=== PATIENT | female | born 1975 | race Caucasian/White ===

== ENCOUNTER → 2023-07-23 | Outpatient (CLI) | payer SELFPAY ==
[~2023-07-23] MED LIST: IBUP800 PO; OXYACE5T PO
[2023-07-23 10:59] LABS: BASOPHILS ABSOLUTE AUTO 0.03 K/mm3 (0.00-0.23); BASOPHILS PERCENT AUTO 0 % (0-2); EOSINOPHILS ABSOLUTE AUTO 0.19 K/mm3 (0.00-0.68); EOSINOPHILS PERCENT AUTO 3 % (0-6); Hematocrit 38.7 % (33.0-51.0); Hemoglobin 12.8 g/dL (11.5-16.0); IMMATURE GRAN ABSOLUTE AUTO 0.04 K/mm3 (0.00-0.10); IMMATURE GRAN PERCENT AUTO 1 % (0-1); LYMPHOCYTES PERCENT AUTO 34 % (21-46); MONOCYTES ABSOLUTE AUTO 0.51 K/mm3 (0.16-1.47); MONOCYTES PERCENT AUTO 7 % (4-13); Mean Corpuscular HGB 30.8 pg (26.0-34.0); Mean Corpuscular HGB Conc 33.1 g/dL (31.5-36.5); Mean Corpuscular Volume 93 fL (80-100); Mean Platelet Volume 10.6 fL (9.1-12.4); NEUTROPHILS ABSOLUTE AUTO 3.82 K/mm3 (1.96-9.15); NEUTROPHILS PERCENT AUTO 55 % (41-73); Platelet Count 255 K/mm3 (150-400); RDW Coefficient Variation 12.8 % (11.7-14.2); RDW Standard Deviation 43.5 fL (35.1-46.3); Red Blood Cell Count 4.16 M/mm3 (3.80-5.20); White Blood Cell Count 6.99 K/mm3 (4.00-11.30)
[2023-07-23 11:20] LABS: Thyroid Stimulating Hormone 0.811 uIU/mL (0.360-4.800)
== END ==
LOC: LAB 10:53 → LAB SHORT 10:53
PROVIDERS: Family Medicine
DX: E04.9 Nontoxic goiter, unspecified (principal); R53.83 Other fatigue
CPT/HCPCS: 84439; 84443; 85025

== ENCOUNTER → 2023-12-28 | Outpatient (CLI) | payer OTHER ==
[2024-01-03 11:57] LABS: HPV HIGH RISK BY TMA Not Detected; HPV SOURCE Cervical
== END ==
LOC: LAB SHORT 17:39 → LAB 17:39
PROVIDERS: Advanced Practice Midwife
DX: Z01.419 Encounter for gynecological examination (general) (routine) without abnormal findings (principal)
CPT/HCPCS: 87624; G0123

== ENCOUNTER → 2024-01-02 | Outpatient (CLI) | payer OTHER ==
[2024-01-02 12:32] LABS: Stool Occult Bld Immuno 1 Negative (NEGATIVE)
== END | disposition home or self-care (01) ==
LOC: LAB SHORT 09:57 → LAB 09:57
PROVIDERS: Family Medicine
DX: Z12.11 Encounter for screening for malignant neoplasm of colon (principal)
CPT/HCPCS: G0328

== ENCOUNTER 2024-12-11 09:05 | Day surgery (SDC) | payer OTHER ==
[~2024-12-11] VITALS: Ht 171 cm; Wt 96.2 kg
[2024-12-11] VITALS (10 sets, daily range): BP systolic 107–137; BP diastolic 52–92
[~2024-12-11 09:05] MED LIST changes: +VENL150ER PO
[2024-12-11] MEDS ORDERED: CeFAZolin Sodium 2,000 MG in NS 100 ML IV SCH (11:05)
--- NOTE | 2024-12-11 11:22 | NUR ---
Ambulatory in Day Surgery History, Chart, Medications and Allergies reviewed before start of procedure.Patient confirms NPO status and agrees with scheduled surgery. Patient reports completing Chlorhexadine shower X2 prior to admission to hospital.Surgical site prepped with 2% Chlorhexidine cloth wipe.
[2024-12-11] MEDS ORDERED: Bupivacaine 0.5% W/EPI 1:200000 SDV 30 ML Vial ONE (12:03)
[2024-12-11] MEDS ORDERED: Midazolam HCl 1MG / ML 2ML Vial ONE (12:19)
[2024-12-11] MEDS ORDERED: HYDROmorphone HCl/Pf 1MG SYR ONE ×2 (12:19→12:43)
[2024-12-11] MEDS ORDERED: Estradiol Vag Cream 0.1 MG/G 42.5 GM Tube ONE (12:20)
[2024-12-11] MEDS ORDERED: Rocuronium Bromide 10 MG/ML 5ML Injection IV ONE (12:20)
[2024-12-11] MEDS ORDERED: Sugammadex Sodium 200 MG/2ML SDV (100 MG/ML) ONE (14:05)
[2024-12-11] MEDS ORDERED: Ondansetron HCl 2 MG / ML 2ML Vial ONE (14:05)
[2024-12-11] MEDS ORDERED: Ketorolac Tromethamine 30mg Vial ONE (14:05)
[2024-12-11] MEDS ORDERED: FentaNYL Citrate 50 MCG/ML 2 ML Injection IV PRN ×3 (14:10→14:20)
[2024-12-11] MEDS ORDERED: HYDROmorphone HCl/Pf 1MG SYR IV PRN (14:10)
[2024-12-11] MEDS ORDERED: Ondansetron HCl 2 MG / ML 2ML Vial IV PRN ×2 (14:15→14:25)
[2024-12-11] MEDS ORDERED: HYDROcodone 5-APAP 325 TAB PO PRN (14:20)
[2024-12-11] MEDS ORDERED: HYDR1TAB94 PO (15:12)
[2024-12-11] MEDS ORDERED: IBU800 M1 PO (15:13)
--- NOTE | 2024-12-11 15:15 | NUR ---
POST OP S/P LAVH + A&P REPAIR. X2 LAP SITES TO ABD WITH GAUZE/TEGADERM ARE CDI. KPAD TO ABD FOR COMFORT. BHAT IN PLACE + VAGINAL PACKING WITH SCANT VAGINAL BLEEDING ON OSMANY PAD. PT DENIES PAIN AND DENIES N/V. OFFERING PO FLUIDS + CRACKERS. POST OP VSS AND IN PROGRESS. ORIENTED TO ROOM AND TREATMENT PLAN. CALL LIGHT WITHIN REACH.
--- NOTE | 2024-12-11 17:09 | NUR ---
DISCHARGE PT EDUCATED ON AND RECEIVED PRINTED DISCHARGE INSTRUCTIONS AND VERBALIZED AN UNDERSTANDING. HARD RX FOR NORCO + MOTRIN GIVEN TO PT. PT VOIDING SPONTANEOUSLY + PACKING REMOVED. PAIN CONTROLLED. PT ANGELINA PO AND INDEP WITH AMBULATION. VSS. PT LEFT WITH ALL PERSONAL BELONGINGS AND TOOK PT HOME.
[2024-12-11] MEDS ORDERED: Ketorolac Tromethamine 30mg Vial IV SCH (18:00)
== END 2024-12-11 17:20 | disposition home or self-care (01) ==
LOC: ORSCMMR 09:05 → ORD 12:15 → SURS 15:03 → ORSCMMR 17:20
PROVIDERS: Obstetrics & Gynecology
PROC: 0JQC0ZZ Repair Pelvic Region Subcutaneous Tissue and Fascia, Open Approach (ICD-10-PCS; principal; 2024-12-11 12:30)
PROC: 0UT9FZZ Resection of Uterus, Via Natural or Artificial Opening With Percutaneous Endoscopic Assistance (ICD-10-PCS; principal; 2024-12-11 12:30)
PROC: 0UT6FZZ Resection of Left Fallopian Tube, Via Natural or Artificial Opening With Percutaneous Endoscopic Assistance (ICD-10-PCS; principal; 2024-12-11 12:30)
DX: N81.2 Incomplete uterovaginal prolapse (principal); N39.3 Stress incontinence (female) (male); Z87.891 Personal history of nicotine dependence; F32.A Depression, unspecified; Z79.899 Other long term (current) drug therapy
CPT/HCPCS: 88307; A9270; J0690; J1171; J1885; J2250; J2405; J2704; J7120